=== PATIENT | male | born 1960 | race Caucasian/White ===

== ENCOUNTER 2017-07-25 14:05 | Emergency (ER) | payer SELFPAY ==
[~2017-07-25] VITALS: Ht 188 cm; Wt 92.1 kg
--- NOTE | 2017-07-25 14:15 | NUR ---
MARY FROM HOME FOR POSSIBLE ETOH, PER REPORT PATIENT HAS BEEN DRINKING ALCOHOL FOR 3-4 DAYS. PATIENT IS AWAKE, HOWEVER CONFUSED AT THIS TIME, SKIN IS WARM TO TOUCH AND NON DIAPHORETIC. PT NOTED WITH SKIN TEAR ON LEFT HAND. REPORTED FALLING,. VSS.
--- NOTE | 2017-07-25 14:15 | NUR ---
MARY FROM HOME FOR POSSIBLEETOH, PER RA REPORT PT HAS BEEN DRINKING ALCOHOL 3-4 DAYS. NAD NOTED, VSS. LOPEZ AT .
[2017-07-25 15:41] VITALS: BP 145/80
== END 2017-07-25 15:42 | disposition home or self-care (01) ==
LOC: ER 14:08
DX: S60.512A Abrasion of left hand, initial encounter (principal); F10.129 Alcohol abuse with intoxication, unspecified; R51 Headache; R73.09 Other abnormal glucose; I10 Essential (primary) hypertension; X58.XXXA Exposure to other specified factors, initial encounter; Y93.89 Activity, other specified; Y92.89 Other specified places as the place of occurrence of the external cause; Y99.8 Other external cause status
CPT/HCPCS: 70450; 82962; 99284; A4606; Z7610